=== PATIENT | male | born 1930 | race Caucasian/White ===

== ENCOUNTER 2016-12-18 14:19 | Inpatient (IN) | payer OTHER ==
[~2016-12-18] VITALS: Ht 167.6 cm; Wt 76.2 kg
--- NOTE | ~2016-12-18 | HC ---
[facility] [place] [address] CONSULTATION Name: JERO SARGENT Room #: 463-P ADM IN M.R.#: [id number] Admission: 12/18/16 Attend Phys: Naresh Hicks MD Discharge: Date of : 34 Report #: [id number] THIS REPORT FOR: //name// CC: Hannah Hicks MD DATE OF SERVICE: 12/18/2016 GASTROENTEROLOGY CONSULTATION PATIENT OF: Dr. Hannah Gomez and Dr. Naresh Hicks. CHIEF COMPLAINT: This is a very pleasant 86-year-old who has birthdate as 1930. HISTORY OF PRESENT ILLNESS: This is a very pleasant 86-year-old white male with a chief complaint of gradually worsening dyspnea on exertion and generalized weakness over the last 2-3 months. The patient says that his symptoms have advanced to the point where he is really not even able to get up and walk anymore. 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 The shortness of breath is very worrisome for him also. He has been taking Aleve and aspirin recently because of vertebroplasty and pain in his back. He has had some melena recently. He says his weight is stable and his appetite has been good. He denies seeing any hematochezia or hematemesis. He does have occasional dysphagia and occasional gastroesophageal reflux. PAST MEDICAL HISTORY: Significant for hyperlipidemia, gastroesophageal reflux, possibly some depression, back pain from his vertebral fractures. PAST SURGICAL HISTORY: Significant for transurethral resection of the prostate for hyperprostatism. There was no history of prostate cancer. 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 ALLERGIES: No known drug allergies. MEDICATIONS: Prior to admission included Aleve, aspirin, citalopram, Zantac, and Pravachol. SOCIAL HISTORY: He smokes 1 cigar 2 times per week. He drinks one glass of wine a day. He has never had a blood transfusion. He denies any history of jaundice, hepatitis, cholelithiasis, cholecystitis or pancreatitis. [address] [address] CONSULTATION Name: JERO SAREGNT Room #: 463-P ADM IN .R.#: [id number] Admission: 12/18/16 Attend Phys: Naresh Hicks MD Discharge: Date of : 32 Report #: [id number] FAMILY HISTORY: Negative for colon polyps, colon cancer, Crohn's disease and ulcerative colitis. REVIEW OF SYSTEMS: He does admit to dyspnea on exertion. He admits to dysphagia to solids. He has occasional gastroesophageal reflux. He has no history of a hiatal hernia, but there is a hiatal hernia that is seen on the CT scan of his abdomen and pelvis today. He has no history of peptic ulcer disease. His weight has been stable. His appetite has been good. He denies any nausea or vomiting. Denies any hematemesis or hematochezia. He has had some dark colored stools recently. He has occasional constipation. Denies any abdominal pain. He denies any acholic stools. He admits to dark urine. There is no history of jaundice, hepatitis, cholelithiasis, cholecystitis or pancreatitis as mentioned earlier. PHYSICAL EXAMINATION: GENERAL: Reveals a well-developed, well-nourished 86-year-old white male who is in no obvious distress at rest in the bed, who is awake, alert, oriented x 4 and cooperative and very pleasant to converse with. HEENT: He is normocephalic and atraumatic and anicteric. HEART: Rate and rhythm are regular with a normal S1 and S2. LUNGS: Clear bilaterally. ABDOMEN: Soft. Bowel sounds are present in all 4 quadrants. There is no palpable organomegaly or mass. There is no tenderness, rebound or guarding. EXTREMITIES: Warm and dry. There is no peripheral clubbing or cyanosis. There is trace edema of the lower extremities. NEUROLOGIC: He appears grossly intact without lateralizing signs, but I did not test him extensively neurologically. LABORATORY DATA: Hemoglobin on admission was 4.6, hematocrit 15.4, MCV 66, MCH 20, MCHC 30, RDW is 28.3, platelet count is 331,000, white count is 4.5. Liver enzymes are all within normal limits. Iron saturation is low at 3%.. CT scan was unrevealing. IMPRESSION: 1. Severe microcytic anemia with a hemoglobin of 4.6. The patient has been noticing increasing weakness and dyspnea on exertion for the past 2-3 months. He has occasional dysphagia and gastroesophageal reflux. Recently he has noted some dark stools, has been taking Aleve and aspirin for his back pain. 2. Dysphagia. 3. Gastroesophageal reflux. 4. Hyperlipidemia. 5. Status post transurethral resection approximately, bilateral knee replacements and vertebroplasties . RECOMMENDATIONS: My recommendations were to continue the Protonix drip or Protonix 40 mg IV q.12h. We will give him MiraLax prep tonight. He will be [address] [address] CONSULTATION Name: JERO SARGENT Room #: 463-P [facility] IN ..#: [id number] Admission: 12/18/16 Attend Phys: Naresh Hicks MD Discharge: Date of : 32 Report #: [id number] n.p.o. after 6:00 in the morning. We will obtain consent for EGD and colonoscopy by me. We will schedule an EGD and colonoscopy for tomorrow. We will check an H and H in the morning. His iron, TIBC and ferritin already been checked and revealed a low iron levels, so iron loading with IV iron would be appropriate. Thank you very much once again for allowing me to participate in his care, Dr. Gomez and Dr. Naresh Hicks. <ELECTRONICALLY SIGNED> By: Teresita Christian DO 12/19/16 0741 56 002 Teresita Christian DO /nt
--- NOTE | ~2016-12-18 | P ---
[facility] [place] [address] PROCEDURE REPORT Name: JERO SARGENT Room #: 463-P [facility] IN M.R.#: [id number] Admission: 12/18/16 Attend Phys: Naresh Hicks MD Discharge: 12/19/16 Date of : 32 Report #: [id number] THIS REPORT FOR: //name// CC: Hannah Hicks MD DATE OF SERVICE: 12/19/2016 PROCEDURE #1: Diagnostic EGD. PATIENT OF: Dr. Naresh Hicks. INDICATION FOR PROCEDURE: This patient has anemia and iron deficiency. His hemoglobin was 4 at the time of admission. He has been increasingly becoming more dyspneic with exertion and is now unable to walk at all because of his severe fatigue and shortness of air. Came to the Emergency Room for evaluation of hemoglobin of 4 and was admitted for further workup. He has been transfused up now to 8 I believe and we are performing EGD and colonoscopy today to try to get to the bottom of the situation. Informed consent for this procedure was obtained prior to the administration of any medication. The risks of the procedure which include bleeding, perforation, infection, complications of sedation and the possibility I could miss something have been explained to the patient and he has indicated his consent by signing. Propofol was slowly titrated before and during this procedure for patient comfort by the anesthesia service. The [employer] upper videoscope was introduced through the upper esophageal sphincter and advanced under direct visualization to the second portion of the duodenum. Findings are noted on withdrawal of the scope. The duodenal mucosa appears normal throughout its entirety and there is yellow bile draining into the duodenum. Pylorus, normal mucosa. Antrum, there were few erosions in the antrum. None of them are oozing or bleeding. There may be a source of heme positive stool, there could be a source of anemia over a long period of time, but they do not look significant. Body, normal mucosa. Cardia and fundus, normal mucosa. Retroflex view reveals a moderate hiatal hernia. The scope was withdrawn to the esophagus. The Z-line is appropriately located at the top of the gastric folds and appears normal. There is an abrupt turn at the very bottom in the esophagus that may be causing his dysphagia, I suspect this is caused by his hiatal hernia. I did not try to dilate the esophagus because it is wide open all the way down, the more proximal esophageal mucosa appears normal. The scope was withdrawn. The patient was turned for colonoscopy. IMPRESSION: [facility] [address] [place] [address] PROCEDURE REPORT Name: JERO SARGENT Room #: 463-P [facility] IN M.R.#: [id number] Admission: 12/18/16 Attend Phys: Naresh Hicks MD Discharge: 12/19/16 Date of : 32 Report #: [id number] 1. Antral erosions. 2. Moderate hiatal hernia. 3. Sharp turn at the bottom of the esophagus, probably caused by his hiatal hernia. The etiology of his melena is unclear. We will proceed with colonoscopy as the next test. Thank you very much once again for allowing me to participate in his care, Dr. Hicks and Dr. Gomez. PROCEDURE #2: Diagnostic colonoscopy. INDICATION FOR PROCEDURE: Evaluate anemia, iron deficiency, melena, hemoglobin of 4. DESCRIPTION OF PROCEDURE: Informed consent for this procedure was obtained prior to the administration of any medication. The risks of the procedure which include bleeding, perforation, infection, complications of sedation and the possibility I could miss something have been explained to the patient and he has indicated his consent by signing. Propofol was slowly titrated before and during this procedure for patient comfort by the anesthesia service. Digital rectal exam was performed, and no masses or abnormalities were palpated. Then, the REPU[employer]on colonoscope was introduced through the anal sphincter and advanced under direct visualization to the terminal ileum. Findings are noted on withdrawal of the scope. The terminal ileal mucosa appears normal. Cecum, normal mucosa. Ascending colon, normal mucosa. Hepatic flexure, normal mucosa. Transverse colon, normal mucosa. Splenic flexure, normal mucosa. Descending colon, a few uncomplicated diverticula are noted. Sigmoid colon, multiple uncomplicated diverticula are noted. There is lot of spasm in the sigmoid. Rectum, normal mucosa. Retroflex view did not reveal any further abnormalities. The scope was slowly withdrawn to the anal canal and no other abnormalities are seen other than a possible tiny external hemorrhoids. The scope was withdrawn. The patient went to the recovery area in stable condition. He tolerated the procedure well. IMPRESSION: Normal colonoscopic exam to the terminal ileum except for uncomplicated left-sided diverticulosis. RECOMMENDATIONS: My recommendations at this point were to proceed with an M2 capsule study today. [facility] [address] [place] [address] PROCEDURE REPORT Name: JERO SARGENT Room #: 463-P DIS IN M.R.#: [id number] Admission: 12/18/16 Attend Phys: Naresh Hicks MD Discharge: 12/19/16 Date of : 32 Report #: [id number] Thank you very much once again for allowing me to participate in his care, Dr. Hicks. <ELECTRONICALLY SIGNED> By: Teresita Christian DO 12/19/16 2250 1058 09 Teresita Christian DO /nt
--- NOTE | ~2016-12-18 | EKG ---
[address] [address] ELECTROCARDIOGRAM REPORT Name: JERO SARGENT Room #: 463-P [facility] IN M.R.#: [id number] Admission: 12/18/16 Attend Phys: Naresh Hicks MD Discharge: 12/19/16 Date of : 32 Report #: [id number] THIS REPORT FOR: //name// [facility] ED Test Date: 2016-12-18 Test Time: 16:15:51 Pat Name: JERO SARGENT Department: Room: [facility] Gender: M Style Advisor: GERA : 1930 Requested By: Tavo Reddy Order Number: [id number] MD: Julio Cesar Obregon Measurements Intervals [place] Rate: 79 P: 61 MA: 158 QRS: -64 QRSD: 151 T: 7 QT: 444 QTc: 510 Interpretive Statements Sinus rhythm RBBB and LAFB Baseline wander in lead(s) V1 Electronically Signed On 12-23-2016 8:06:26 CDT by Julio Cesar Obregon [email or web address] <ELECTRONICALLY SIGNED> By: Julio Cesar Obregon MD 12/23/16 0806 14 14 Julio Cesar Obregno MD /MAMADOU
[2016-12-18 14:19] VITALS: BP 143/70
[~2016-12-18 14:19] MED LIST: CARDURA XL4 MG PO; CELEXA40 MG PO; COUMADIN 2 MG TA2 M1 PO; HYDROCODONE-AP1 EA11 PO; SIMVASTATIN40 MG PO; ZANTAC 150MG T150 M1 PO
[2016-12-18] MEDS ORDERED: PRAVACHOL40 MG PO (14:53)
[2016-12-18] MEDS ORDERED: ASPIR 8181 MG PO (14:54)
[2016-12-18 15:50] LABS: MANUAL DIFF YES; MCHC 30.2 g/dL (28.0-37.0); MCV 66.3 fL (80.0-100.0); PLATELET COUNT 331 thou/uL (150-400); RBC 2.32 mil/uL (4.50-6.00); RDW 28.3 % (10.5-14.5); WBC 4.5 thou/uL (4.0-11.0)
[2016-12-18 15:51] LABS: HEMATOCRIT 15.4 % (42.0-52.0); HEMOGLOBIN 4.6 gm/dL (14.0-18.0)
[2016-12-18 15:52] LABS: CALCIUM 8.5 mg/dL (8.5-10.1); CREATININE 1.3 mg/dL (0.7-1.3); POTASSIUM 4.2 mmol/L (3.5-5.1)
[2016-12-18 15:57] LABS: ALBUMIN 3.8 g/dL (3.4-5.0); TOTAL BILIRUBIN 0.4 mg/dL (<0.1-1.0); TOTAL PROTEIN 6.4 g/dL (6.4-8.2)
[2016-12-18 16:09] LABS: ABSOLUTE NEUTROPHILS 2.8 thou/uL (1.4-8.2); TOTAL CELL COUNT 100
[2016-12-18 16:10] LABS: ANISOCYTOSIS 3+; MICROCYTES 3+
[2016-12-18 16:11] LABS: HYPOCHROMASIA 3+; SCHISTOCYTES 1+
[2016-12-18 17:03] VITALS: BP 150/57
[2016-12-18 17:41] VITALS: BP 127/70; BP 135/42
[2016-12-18 18:42] LABS: % SATURATION 3 % (20-39); IRON 11 ug/dL (65-175); TIBC 389 ug/dL (250-450); UIBC 378 ug/dL
[2016-12-18 20:01] VITALS: BP 127/70
[2016-12-18 20:23] VITALS: BP 126/72; BP 145/84; BP 147/84
[2016-12-18 22:53] VITALS: BP 146/82; BP 147/84; BP 150/81
[2016-12-19 01:17] VITALS: BP 141/76; BP 143/76
[2016-12-19 05:53] LABS: HEMATOCRIT 29.1 % (42.0-52.0); MCH 24.6 pg (26.0-34.0); MCHC 32.4 g/dL (28.0-37.0); RBC 3.83 mil/uL (4.50-6.00); RDW 26.3 % (10.5-14.5); WBC 6.2 thou/uL (4.0-11.0)
[2016-12-19 06:09] LABS: HEMOGLOBIN 9.4 gm/dL (14.0-18.0); MCV 75.9 fL (80.0-100.0)
[2016-12-19] MEDS ORDERED: HYDROCODONE-AP1 EAC6 PO (07:30)
[2016-12-19] MEDS ORDERED: ALEVE220 MG PO (07:31)
[2016-12-19] MEDS ORDERED: MOBIC15 MG PO (07:31)
[2016-12-19] MEDS ORDERED: GABAPENTIN 100100 MG PO (07:32)
[2016-12-19 08:45] VITALS: BP 131/68
[2016-12-19 12:42] VITALS: BP 143/78
[2016-12-19 14:19] VITALS: BP 143/78
[2016-12-19] MEDS ORDERED: IRON325 PO (16:40)
[2016-12-19] MEDS ORDERED: PROTONIX40 M1 PO (16:40)
== END 2016-12-19 16:56 | disposition home or self-care (01) | DRG 812 ==
LOC: ER 14:19 → 4W 16:17 → EROBS 16:17 → 4W 16:48
PROVIDERS: Emergency Medicine; Family Medicine
DX: D50.9 Iron deficiency anemia, unspecified (principal); K21.9 Gastro-esophageal reflux disease without esophagitis; F17.210 Nicotine dependence, cigarettes, uncomplicated; E78.5 Hyperlipidemia, unspecified; Z96.653 Presence of artificial knee joint, bilateral; R13.10 Dysphagia, unspecified; K44.9 Diaphragmatic hernia without obstruction or gangrene; K57.90 Diverticulosis of intestine, part unspecified, without perforation or abscess without bleeding; Z90.49 Acquired absence of other specified parts of digestive tract; Z87.81 Personal history of (healed) traumatic fracture; Z98.52 Vasectomy status; Z88.6 Allergy status to analgesic agent
CPT/HCPCS: 10045; 62110; 70005

== ENCOUNTER → 2021-05-08 | Day surgery (SDC) | payer OTHER ==
[~2021-05-08] VITALS: Ht 167.6 cm; Wt 77.1 kg
[~2021-05-08] MED LIST changes: +ACETAMINOPHEN325 M1 PO; +ALEVE220 MG PO; +ASPIR 8181 MG PO; +COLACE 100 MG100 MG PO; +GABAPENTIN 100100 MG PO; +HYDROCODONE-AP1 EAC6 PO; +IRON325 PO; +LEVO-T25 MCG PO; +MIRALAX17 GM PO; +MOBIC15 MG PO; +PRAVACHOL40 MG PO; +PROTONIX40 M1 PO; +PROTONIX40 M2 PO; +TRAMADOL 50 MG50 MG PO
[2021-05-08 08:45] VITALS: BP 151/52
[2021-05-08 11:47] VITALS: BP 151/52
--- NOTE | 2021-05-09 17:06 | PATH ---
[facility] [address] [place] [address] PATHOLOGY RPT PROCEDURE Name: JERO SARGENT Room #: REG [facility] M.R.#: [id number] Admission: 05/08/21 Date of : 32 Discharge: Report #: [id number] Path Case #: [id number] [facility] Accession Number: [id number] . 01 Material submitted: . inguinal area - RIGHT CORD LIPOMA. Modifiers: right . 01 Clinical history: . HERNIA REPAIR, INGUINAL UNILATERAL RIGHT INGUINAL HERNIA . 02 Diagnosis: Mature adipose tissue, right cord lipoma, excision: - Lipoma with marked congestion and reactive changes. (IUV:merrill; 05/09/2021) QMS 05/09/2021 1424 Local . 02 Electronically signed: . Ling Hernandez MD, Pathologist NPI- [id number] . 01 Gross description: . Fixative: Formalin Labeled: Cord lipoma right side Specimen received: A gardner-yellow, irregular fatty soft tissue segment Dimensions: 5.0 x 4.0 x 2.0 cm External surface: Fibrous and focally disrupted Cut surface: Gardner-yellow lobulated cut surfaces . Revenue Tax Specialist sections are submitted in A1-A2. (MRF; 05/08/2021) MFE/MFE 05/08/2021 1809 Local . 02 Pathologist provided ICD-10: D17.6 . 02 CPT . 061270 Specimen Comment: A courtesy copy of this report has been sent to [phone] Specimen Comment: [phone] Specimen Comment: Report sent to / DR LAZCANO Performed at: [address] [id number] MD Alan Goodwin MD Phone: [phone] Performed at: [address] [address] PATHOLOGY RPT PROCEDURE Name: ARIEJEROTANNA JOHNS [id number] Admission: 05/08/21 Date of : 32 Discharge: Report #: [id number] Path Case #: [id number] [address] [id number] MD Ling Hernandez MD Phone: [phone]
== END | disposition home or self-care (01) ==
LOC: OR 05-01 12:46
PROVIDERS: ATTEND Surgery
DX: K40.90 Unilateral inguinal hernia, without obstruction or gangrene, not specified as recurrent (principal); D17.6 Benign lipomatous neoplasm of spermatic cord; K21.9 Gastro-esophageal reflux disease without esophagitis; F17.210 Nicotine dependence, cigarettes, uncomplicated; Z98.890 Other specified postprocedural states; Z79.899 Other long term (current) drug therapy; Z20.822 Contact with and (suspected) exposure to COVID-19; Z96.653 Presence of artificial knee joint, bilateral; Z98.52 Vasectomy status; Z88.6 Allergy status to analgesic agent
CPT/HCPCS: 50010; 50101; 50386; 50403; 54118; 56524; 56525; 56526; 58646; 62110; 62900; 65130; 70005